=== PATIENT | female | born 1990 | race Two or more races ===

== ENCOUNTER 2017-03-30 09:04 | Emergency (ER) | payer OTHER ==
[2017-03-30 09:24] VITALS: BP 121/79; PULSE 89; TEMP 98.3; BMI 28.1
--- NOTE | 2017-03-30 09:37 | PDOC ---
History of Present Illness - General Chief Complaint: Pain, Acute Stated Complaint: ABD PAIN Time Seen by Provider: 03/30/17 09:35 History Source: Patient Exam Limitations: No Limitations - History of Present Illness Travel History: No Initial Comments: 03/30/17 13:04 My Chief Complaint: lower abdominal pain, nausea, vomiting History of present illness: Patient is a 26-year-old female with no significant medical history today complaining of lower abdominal cramping alternatingly sharp pain every few days for the last 2 years getting worse in the last 2-3 months. Patient reports also that she's had nausea and vomiting for 2-3 months with multiple episodes of vomiting today and prior to that 3 days ago. Patient denies any diarrhea. Patient denies any dysuria however patient needs frequently and has urgency with no hematuria. Patient last saw her GLASS BLOWING LATHE OPERATOR [address] Chyna García. Patient is a 4 para 3 and miscarriage 1 all vaginal deliveries. Patient reports that she has had this lower abdominal cramping and sharp pain since the of her son 05/26/2015. Patient reports that she was getting Depo injection was 2015. Patient's last menstrual cycle was 03/30/2017 and lasted for 8 days. Patient denies any belching or epigastric tenderness or burning sensation. Denies any vaginal discharge. Patient reports that at times when having sex she has some dyspareunia. Patient reports being sexually active with the same partner for years. Social HX: drinks on socially on occasion, denies any drug use PCP> Dr. Melissa Montez 03/30/17 13:08 03/30/17 13:09 03/30/17 19:57 Timing/Duration: reports: changing over time (for last 2 years getting worse in last 2-3 months) Quality: reports: cramping, stabbing (alternates between cramping and stabbing sensation every 2 days) Abdominal Pain Onset Location: reports: suprapubic Pain Radiation: reports: no radiation Activities at Onset: reports: none Aggravating Factors: improves with: None Alleviating Factors: improves with: None Past History - Past Medical History Allergies/Adverse Reactions: Allergies Allergy/AdvReac Type Severity Reaction Status Date / Time No Known Allergies Allergy Verified 03/30/17 09:20 Home Medications: Ambulatory Orders Ciprofloxacin HCl [Cipro] 500 mg PO BID #14 tablet 03/30/17 Asthma: No Cancer: No Cardiac Disorders: No Diabetes: No HTN: No Seizures: No Thyroid Disease: No Other medical history: gallstones - Surgical History Cholecystectomy: Yes (GALLSTONES REMOVED) - Reproductive History (#): 4 Para: 3 Cervical CA: No Dysfunctional Uterine Bleeding: No Ectopic : No Endometrial CA: No Polycystic Ovaries: No Therapeutic (s) & number: ("baby in utero at 15 weeks") Tubal Ligation: No - Immunization History Immunization Up to Date: Yes - Psycho/Social/Smoking Cessation Hx Anxiety: No Suicidal Ideation: No Smoking History: Former smoker Have you smoked in the past 12 months: Yes Number of Cigarettes Smoked Daily: 0 If you are a former smoker, when did you quit?: 1 month ago Information on smoking cessation initiated: No Hx Alcohol Use: Yes Drug/Substance Use Hx: No Substance Use Type: None Hx Substance Use Treatment: No Review of Systems - Review of Systems Able to Perform ROS?: Yes Constitutional: No: Symptoms Reported HEENTM: No: Symptoms Reported Respiratory: No: Symptoms reported Cardiac (ROS): No: Symptoms Reported ABD/GI: Yes: Nausea (nausea and vomiting for 2-3 months, vomited today multiple times, ), Vomiting : Yes: Dysuria, Frequency, Urgency, Other (dyspareunia intermittently ). No: Discharge, Flank Pain, Hematuria, Pain, Lesions Musculoskeletal: No: Symptoms Reported Integumentary: No: Symptoms Reported Neurological: No: Symptoms reported *Physical Exam - Vital Signs Last Vital Signs Temp Pulse Resp BP Pulse Ox 98.3 F 89 18 121/79 98 03/30/17 09:21 03/30/17 09:21 03/30/17 09:21 03/30/17 09:21 03/30/17 09:21 - Physical Exam General Appearance: Yes: Appropriately Dressed Respiratory/Chest: positive: Lungs Clear, Normal Breath Sounds. negative: Chest Tender, Respiratory Distress Cardiovascular: positive: Regular Rhythm, Regular Rate, S1, S2 Gastrointestinal/Abdominal: positive: Normal Bowel Sounds, Tender (suprapubic area b/l ), Soft, Organomegaly. negative: Distended, Guarding, Rebound, Tenderness, Hepatomegaly, Spleenomegaly Musculoskeletal: negative: CVA Tenderness, CVA Tenderness (R), CVA Tenderness (L ) Integumentary: positive: Normal Color Neurologic: positive: Fully Oriented, Alert, Normal Response, Responsive ED Treatment Course - LABORATORY CBC & Chemistry Diagram: 03/30/17 11:55 03/30/17 11:55 Medical Decision Making - Medical Decision Making 03/30/17 12:50 Patient is a 26-year-old female with h/o cholecytectomy o significant medical history today complaining of lower abdominal cramping alternatingly sharp pain every few days for the last 2 years getting worse in the last 2-3 months. Patient reports also that she's had nausea and vomiting for 2-3 months with multiple episodes of vomiting today and prior to that 3 days ago. Patient denies any diarrhea. Patient denies any dysuria however patient needs frequently and has urgency with no hematuria. Patient last saw her GLASS BLOWING LATHE OPERATOR [address] Chyna García. Patient is a 4 para 3 and miscarriage 1 all vaginal deliveries. Patient reports that she has had this lower abdominal cramping and sharp pain since the of her son 05/26/2015. Patient reports that she was getting Dep injection was 2015. Patient's last menstrual cycle was 03/30/2017 and lasted for 8 days. Patient denies any belching or epigastric tenderness or burning sensation. Denies any vaginal discharge. Patient reports that at times when having sex she has some dyspareunia. Patient reports being sexually active with the same partner for years. b/l ovarian cyst pyelonephritis lower abdominal pain with nausea and vomiting R/O UTI R/O intraabdominal abnormalities PLAN: CBC with diff cmp lipase u/a urine C & S chlamydia/GC amplification IV insert NS 0.9 % 1000 liters toradol [address] abdomen/pelvis with IV/PO refill left ovarian focal low attend urination density likely representing a cyst measuring 2.5 cm and there is a larger right adnexal cyst measuring 3.9 cm there is inadequate distention of the colon limiting evaluation the wall in particular there is inadequate distention of the sigmoid colon cannot rule out wall thickening correlate clinically per Dr. Calixto. cipro 500 mg bid for 7 days follow up with tempering kiln tender as soon as possible follow up with your primary care provider Laboratory Tests 03/30/17 03/30/17 03/30/17 09:35 09:48 11:55 WBC 9.2 RBC 4.27 Hgb 13.2 Hct 38.8 MCV 91.0 MCHC 33.9 RDW 13.3 Plt Count 338 D MPV 7.0 L Neutrophils % 59.5 Lymphocytes % 22.5 Monocytes % 7.1 Eosinophils % 10.1 H D Basophils % 0.8 Sodium Potassium Chloride Carbon Dioxide Anion Gap BUN Creatinine Creat Clearance w eGFR Random Glucose Total Bilirubin AST ALT Alkaline Phosphatase Total Protein Albumin Lipase Urine Color Yellow Urine Appearance Clear Urine pH 5.0 D Ur Specific [place] Pending Urine Protein Negative Urine Glucose (UA) Negative Urine Ketones Negative Urine Blood 1+ H Urine Nitrite Negative Urine Bilirubin Negative Urine Urobilinogen Negative Ur Leukocyte Esterase Trace H D Urine RBC 1 Urine WBC 4 Ur Epithelial Cells Rare Urine Mucus Few Urine HCG, Qual Negative 03/30/17 11:55 WBC RBC Hgb Hct MCV MCHC RDW Plt Count MPV Neutrophils % Lymphocytes % Monocytes % Eosinophils % Basophils % Sodium 142 Potassium 4.6 Chloride 108 H Carbon Dioxide 26 Anion Gap 8 BUN 9 D Creatinine 0.8 Creat Clearance w eGFR > 60 Random Glucose 83 Total Bilirubin 0.4 D AST 22 D ALT 34 D Alkaline Phosphatase 75 D Total Protein 7.8 Albumin 4.0 Lipase 107 Urine Color Urine Appearance Urine pH Ur Specific [place] Urine Protein Urine Glucose (UA) Urine Ketones Urine Blood Urine Nitrite Urine Bilirubin Urine Urobilinogen Ur Leukocyte Esterase Urine RBC Urine WBC Ur Epithelial Cells Urine Mucus Urine HCG, Qual 03/30/17 13:09 03/30/17 13:09 03/30/17 13:11 03/30/17 15:57 03/30/17 19:58 03/30/17 19:59 *DC/Admit/Observation/Transfer Diagnosis at time of Disposition: Ovarian cyst, Pyelonephritis - Discharge Dispostion Disposition: HOME Condition at time of disposition: Stable - Prescriptions Prescriptions: Ciprofloxacin HCl [Cipro] 500 mg PO BID #14 tablet - Referrals Referrals: Ginette Cervantes MD [Primary Care Provider] - - Patient Instructions Additional Instructions: Follow Up with your revenue accountant as soon as possible return to emergency room if symptoms return to emergency room if symptoms worsen or new symptoms develop Drink a lot of Fluids especially cranberry juice Take ibuprofen as needed as directed by qa automation engineer for pain we will call you if pending labs will need follow-up treatment Patient voiced understanding of discharge instructions and all questions were answered - Post Discharge Activity Work/School Note: Back to Work
[2017-03-30 10:03] LABS: URINE APPEARANCE CLEAR; URINE BILIRUBIN NEGATIVE (NEGATIVE); URINE COLOR YELLOW; URINE GLUCOSE (UA) NEGATIVE (NEGATIVE); URINE KETONE NEGATIVE (NEGATIVE); URINE NITRITE NEGATIVE (NEGATIVE); URINE PROTEIN NEGATIVE (NEGATIVE); URINE UROBILINOGEN NEGATIVE E.U./dl (0.2-1.0)
[2017-03-30] MEDS ORDERED: ONDANSETRON *ODT* 4 MG TABLET SL ONE (10:05)
[2017-03-30] MEDS ORDERED: ONDANSETRON *ODT* 4 MG TABLET ONE (10:12)
[2017-03-30] MEDS ORDERED: KETOROLAC TROMETHAMINE 60 MG/2 ML VIAL IM ONE (10:57)
[2017-03-30] MEDS ORDERED: SODIUM CHLORIDE 1,000 ML IV STA (10:57)
[2017-03-30] MEDS ORDERED: KETOROLAC TROMETHAMINE 30 MG/1 ML VIAL ONE (11:05)
[2017-03-30 12:06] LABS: BASOPHIL 0.8 % (0-2.0); EOSINOPHIL 10.1 % (0-4.5); MCH 30.9 pg (25.7-33.7); MCHC 33.9 g/dl (32.0-36.0); NEUTROPHILS 59.5 % (42.8-82.8); PLATELET COUNT 338 K/MM3 (134-434); RDW 13.3 % (11.6-15.6); WHITE BLOOD COUNT 9.2 K/mm3 (4.0-10.0)
[2017-03-30 12:19] LABS: URINE BLOOD 1+ (NEGATIVE); URINE LEUK ESTERASE TRACE (NEGATIVE)
[2017-03-30 12:23] LABS: URINE MUCUS FEW; URINE RBC 1 /hpf (0-3); URINE WBC 4 /hpf (3-5)
[2017-03-30 12:30] LABS: ANION GAP 8 (8-16); CO2 26 mmol/L (21-32); CREATININE 0.8 mg/dL (0.55-1.02); GLUCOSE,RANDOM 83 mg/dL (74-106); SGOT/AST 22 U/L (15-37); SGPT/ALT 34 U/L (12-78)
[2017-03-30 12:31] LABS: ALK PHOS 75 U/L (45-117); BILIRUBIN,TOTAL 0.4 mg/dL (0.2-1.0); TOT PROT 7.8 g/dl (6.4-8.2)
== END 2017-03-30 16:09 | disposition home or self-care (01) ==
LOC: JERFT 09:04
PROC: 3E0337Z Introduction of Electrolytic and Water Balance Substance into Peripheral Vein, Percutaneous Approach (ICD-10-PCS; principal; 2017-03-30)
PROC: 3E0233Z Introduction of Anti-inflammatory into Muscle, Percutaneous Approach (ICD-10-PCS; 2017-03-30)
DX: N10 Acute pyelonephritis (principal); N83.292 Other ovarian cyst, left side; N83.291 Other ovarian cyst, right side
CPT/HCPCS: 36415; 74177-TC; 80053; 81003; 81015; 83690; 84703; 85025; 87086; 87491; 87591; 99281-25; Q9967

== ENCOUNTER 2018-08-28 18:02 | Emergency (ER) | payer OTHER ==
[2018-08-28 19:21] VITALS: BP 119/66; PULSE 88; TEMP 99.1; BMI 27.4
[2018-08-28] MEDS ORDERED: DEXAMETHASONE LIQUID 0.5 MG/5 ML 240 ML BULK BOTTLE PO ONE (20:50)
[2018-08-28] MEDS ORDERED: DEXAMETHASONE SOD PHOSPHATE 10 MG/1 ML VIAL ONE (20:53)
--- NOTE | 2018-08-28 20:53 | PDOC ---
History of Present Illness - General Chief Complaint: Sore Throat Stated Complaint: SORE THROAT, EARACHE Time Seen by Provider: 08/28/18 20:45 - History of Present Illness Initial Comments: 28-year-old healthy female without comorbidities presents for evaluation of sore throat and subjective fever at home 4 days. 08/28/18 20:51 Past History - Past Medical History Allergies/Adverse Reactions: Allergies Allergy/AdvReac Type Severity Reaction Status Date / Time No Known Allergies Allergy Verified 08/28/18 19:18 Home Medications: Ambulatory Orders Amoxicillin - [Amoxicillin 875mg Tablet -] 875 mg PO BID #20 tablet 08/28/18 Asthma: No Cancer: No Cardiac Disorders: No COPD: No Diabetes: No HTN: No Seizures: No Thyroid Disease: No - Surgical History Cholecystectomy: Yes (GALLSTONES REMOVED) - Reproductive History (#): 4 Para: 3 Cervical CA: No Dysfunctional Uterine Bleeding: No Ectopic : No Endometrial CA: No Polycystic Ovaries: No Therapeutic (s) & number: ("baby in utero at 15 weeks") Tubal Ligation: No - Immunization History Immunization Up to Date: Yes - Suicide/Smoking/Psychosocial Hx Smoking History: Never smoked Have you smoked in the past 12 months: Yes Number of Cigarettes Smoked Daily: 0 If you are a former smoker, when did you quit?: 1 month ago Hx Alcohol Use: No Drug/Substance Use Hx: No Substance Use Type: None Hx Substance Use Treatment: No Review of Systems - Review of Systems Constitutional: Yes: Fever HEENTM: Yes: Throat Pain All Other Systems: Reviewed and Negative *Physical Exam - Vital Signs Last Vital Signs Temp Pulse Resp BP Pulse Ox 99.1 F 88 16 119/66 99 08/28/18 19:19 08/28/18 19:19 08/28/18 19:19 08/28/18 19:19 08/28/18 19:19 - Physical Exam Comments: 08/28/18 20:51 HEAD: NC/AT EYES: Conjuntiva clear Ears: Canals and TM's normal NOSE: No d/c THROAT: Moist mucous membrances, oral pharanx erythemic with exudate, uvula midline NECK: Supple without adenopathy CARDIAC: S1 S2 LUNGS: CTA Full and Equal breath sounds ABDOMEN: Soft NT ND MS: Full ROM in all joints without edema NEUROLOGIC: No gross sensory or motor deficits, NVID SKIN: Normal color and temperature no lesions or rashes *DC/Admit/Observation/Transfer Diagnosis at time of Disposition: Strep pharyngitis - Discharge Dispostion Disposition: HOME Condition at time of disposition: Stable Decision to Admit order: No - Prescriptions Prescriptions: Amoxicillin - [Amoxicillin 875mg Tablet -] 875 mg PO BID #20 tablet - Referrals Referrals: Devin Cervantes [Primary Care Provider] - - Patient Instructions Printed Discharge Instructions: Strep Throat, DI for Strep Throat Additional Instructions: Did not take any [id number] cold preparation such as TheraFlu or NyQuil. Do not take any anti-inflammatory such as Advil Motrin or Aleve. If he anything more for pain you can take Tylenol extra strength as directed. Return to the emergency room should symptoms worsen or go unresolved. He was given a dose of steroids in the emergency room tonight which will help with her throat pain about a day. Take all the antibiotics as directed you must finish the entire bottle. Follow-up with your primary care physician in one to 2 days for further evaluation and treatment options. - Post Discharge Activity
== END 2018-08-28 20:57 | disposition home or self-care (01) ==
LOC: JERFT 18:02 → JER 18:02 → JERFT 20:57
DX: J02.0 Streptococcal pharyngitis (principal); B95.5 Unspecified streptococcus as the cause of diseases classified elsewhere
CPT/HCPCS: 99281-25

== ENCOUNTER 2019-03-04 13:57 | Emergency (ER) | payer OTHER ==
--- NOTE | 2019-03-04 14:07 | PDOC ---
Rapid Medical Evaluation Time Seen by Provider: 03/04/19 14:05 Medical Evaluation: Allergies Allergy/AdvReac Type Severity Reaction Status Date / Time No Known Allergies Allergy Verified 08/28/18 19:18 03/04/19 14:05 I have performed a brief in-person evaluation of this patient. The patient presents with a chief complaint of:Diarrhea w/ n/v x 3 days, w/ lower abd pain x 1 week. No f/c. No sick contacts, recent travel, unusual food or abx use Pertinent physical exam findings:Well nina and stable, abd exam deferred to ED provider I have ordered the following:labs/given urine cup in triage The patient will proceed to the ED for further evaluation. Discharge Disposition - Diagnosis Abdominal pain Qualifiers: Abdominal location: unspecified location Qualified Code(s): R10.9 - Unspecified abdominal pain - Referrals - Patient Instructions - Post Discharge Activity
[2019-03-04 14:13] VITALS: BMI 27.1
[2019-03-04] MEDS ORDERED: ACETAMINOPHEN 325 MG TABLET (FP) PO ONE (15:34)
[2019-03-04 15:41] LABS: BASO % 0.6 % (0-2.0); EOS % 1.8 % (0-4.5); HEMATOCRIT 35.6 % (32.4-45.2); LYMPH % 44.6 % (8-40); MCH 31.2 pg (25.7-33.7); MCHC 33.8 g/dl (32.0-36.0); MEAN CELL VOLUME 92.3 fl (80-96); MEAN PLT VOLUME 7.1 fl (7.5-11.1); MONO % 14.7 % (3.8-10.2); NEUT % 38.3 % (42.8-82.8); PLATELET COUNT 323 K/MM3 (134-434); RBC 3.85 M/mm3 (3.60-5.2); RDW 13.4 % (11.6-15.6); WHITE BLOOD COUNT 5.5 K/mm3 (4.0-10.0)
--- NOTE | 2019-03-04 15:43 | PDOC ---
History of Present Illness - General Chief Complaint: Pain, Acute Stated Complaint: ABD. PAIN Time Seen by Provider: 03/04/19 14:05 History Source: Patient Exam Limitations: No Limitations Past History - Travel Traveled outside of the country in the last 30 days: No Close contact w/someone who was outside of country & ill: No - Past Medical History Allergies/Adverse Reactions: Allergies Allergy/AdvReac Type Severity Reaction Status Date / Time No Known Allergies Allergy Verified 08/28/18 19:18 Home Medications: Ambulatory Orders Acetaminophen [Tylenol .Regular Strength -] 650 mg PO Q3H PRN #0 tablet Ibuprofen [Motrin -] 600 mg PO Q4H PRN #0 tablet 05/28/15 Vitamins (Sjr) - 1 tab PO DAILY #30 tablet 05/28/15 Albuterol Sulfate Inhaler - [Ventolin HFA Inhaler -] 1 - 2 inh PO Q4H #1 inhaler 05/21/18 Amoxicillin - [Amoxicillin 500mg Capsule -] 500 mg PO BID #14 capsule 05/21/18 Ibuprofen 800 mg PO TID #30 tablet 05/21/18 Ketotifen Fumarate [Zaditor] 2 drop OU TID #100 drops 05/21/18 Amoxicillin - [Amoxicillin 875mg Tablet -] 875 mg PO BID #20 tablet 08/28/18 Asthma: No Cancer: No Cardiac Disorders: No COPD: No Diabetes: No HTN: No Seizures: No Thyroid Disease: No - Surgical History Cholecystectomy: Yes - Reproductive History (#): 4 Para: 3 Cervical CA: No Dysfunctional Uterine Bleeding: No Ectopic : No Endometrial CA: No Polycystic Ovaries: No Therapeutic (s) & number: ("baby in utero at 15 weeks") Tubal Ligation: No - Immunization History Immunization Up to Date: Yes - Suicide/Smoking/Psychosocial Hx Smoking History: Former smoker Have you smoked in the past 12 months: Yes Number of Cigarettes Smoked Daily: 0 If you are a former smoker, when did you quit?: 3 Weeks Information on smoking cessation initiated: No Hx Alcohol Use: Yes (Social) Drug/Substance Use Hx: No Substance Use Type: None Hx Substance Use Treatment: No Review of Systems - Review of Systems Able to Perform ROS?: Yes Is the patient limited Turkish proficient: No Constitutional: Yes: Weight Stable. No: Chills, Diaphoresis, Fever, Loss of Appetite, Malaise, Weakness HEENTM: No: Blurred Vision, Double Vision, Nose Congestion, Throat Pain, Throat Swelling, Difficulty Swallowing Respiratory: No: Cough, Orthopnea, Shortness of Breath Cardiac (ROS): No: Chest Pain, Edema, Irregular Heart Rate, Lightheadedness, Palpitations, Syncope, Chest Tightness ABD/GI: Yes: See HPI, Diarrhea, Nausea, Vomiting, Abdominal cramping (cramping in lower abdomen and lower back). No: Abdominal Distended, Blood Streaked Bowels, Constipated, Poor Appetite, Poor Fluid Intake : No: Burning, Dysuria, Discharge, Frequency, Flank Pain, Hematuria, Pain, Urgency Musculoskeletal: Yes: Back Pain (lower back cramping). No: Joint Pain, Muscle Pain, Muscle Weakness Integumentary: No: Rash Neurological: No: Headache, Numbness, Paresthesia, Weakness, Unsteady Gait, Dizziness Psychiatric: No: Sleep Pattern Change, Change in Appetite Endocrine: No: Increased Urine, Change in Weight Hematologic/Lymphatic: No: Anemia, Blood Clots, Easy Bleeding, Easy Bruising All Other Systems: Reviewed and Negative *Physical Exam - Vital Signs Last Vital Signs Temp Pulse Resp BP Pulse Ox 98.4 F 103 H 20 121/75 99 03/04/19 14:06 03/04/19 14:06 03/04/19 14:06 03/04/19 14:06 03/04/19 14:06 - Physical Exam Comments: Vitals stable, pt afebrile. Pt in NAD, normal body habitus. Pt alert and oriented x3. forensic sergeant generally intact, muscular strength and sensation intact. No midline spinal tenderness, step-offs, or crepitus. Head normocephalic, atraumatic. Eyes PERRLA, EOMI. Oropharynx without erythema or exudates, no LAD b/l. No nasal congestion, hearing intact. Clear heart sounds, S1/S2, no JVD, b/l pedal edema, or heart murmur. Clear lung sounds, no respiratory distress, wheezes, crackles, or accessory muscle use. No abdominal or CVA tenderness to palpation, no rebound, no guarding. Abdomen soft, non-distended, and with normoactive bowel sounds. Pelvic: Skin without jaundice or rash. 03/04/19 16:41 ED Treatment Course - LABORATORY CBC & Chemistry Diagram: 03/04/19 15:25 03/04/19 15:25 Medical Decision Making - Medical Decision Making Pt was seen at bedside, also will be seen by attending Dr. Russo. Pt presenting with Considering [vs vs] Ordered work-up including CBC, CMP, type and screen, UA, urine culture, GC/ trichomonas/chlamydia, and urine . Pending test to determine transvaginal US (/bleeding eval vs ovarian cysts). Provided 650 mg PO tylenol for improvement of lower abdominal discomfort. Will continue to reassess pt and monitor for symptomatic improvement. 03/04/19 15:35 Pt was taken for transvaginal US (for <14 weeks), pending report. 03/04/19 17:39 Transvaginal US: Impression: Possible small intrauterine gestational sac without an associated yolk sac or embryonic pole at this time (versus representing a pseudogestational sac associated with ectopic ). 1.6 cm right ovarian cyst/follicle. 03/04/19 18:07 Pts beta-level was appropriate for gestational age. Cervical os was closed, no active bleeding at this time. No need for rhogam based on blood type. US showed IUP with no evidence at this time of an ectopic . Pt can be discharged to home with follow-up. Pt advised to follow-up with PCP in 1-2 days and has been referred to STOCK RECEIVER (Dr. Michaels). Strict return precautions provided with pt understanding. Pt can follow with OB or return to ER in 48 hours for repeat beta. 03/04/19 18:07 *DC/Admit/Observation/Transfer Diagnosis at time of Disposition: in first trimester with history of Abdominal pain Qualifiers: Abdominal location: unspecified location Qualified Code(s): R10.9 - Unspecified abdominal pain - Discharge Dispostion Disposition: HOME Condition at time of disposition: Good Decision to Admit order: No - Referrals Referrals: Diomedes Michaels MD [Staff Physician] - - Patient Instructions Printed Discharge Instructions: DI for Threatened , DI for Vaginal Bleeding During Additional Instructions: You were seen in the ER today for vaginal spotting, nausea, and vomiting. The results of your labs and imaging today showed that you have an early . Please follow-up with your primary care doctor and STOCK RECEIVER within 1-2 days to discuss your visit and make sure your symptoms have improved. Please return to the ER if you have any worsening pain, development of fevers or chills, loss of consciousness, heavy vaginal bleeding that soaks through 1-2 heavy pads per hour , passage of heavy clots or tissue, inability to tolerate food or fluids, or any other concerns. - Post Discharge Activity
[2019-03-04] MEDS ORDERED: ACETAMINOPHEN 325 MG TABLET (FP) ONE ×2 (16:03→16:05)
[2019-03-04 16:08] LABS: HCG,QUALITATIVE URINE Positive; PH,URINE 5.5 (5.0-8.0); URINE APPEARANCE CLEAR; URINE BILIRUBIN NEGATIVE (NEGATIVE); URINE COLOR DK YELLOW; URINE GLUCOSE (UA) NEGATIVE (NEGATIVE); URINE KETONE TRACE (NEGATIVE); URINE LEUK ESTERASE NEGATIVE (NEGATIVE); URINE NITRITE NEGATIVE (NEGATIVE); URINE PROTEIN TRACE (NEGATIVE); URINE UROBILINOGEN 0.2 mg/dL (0.2-1.0)
[2019-03-04 16:15] LABS: ALBUMIN 3.6 g/dl (3.4-5.0); ALK PHOS 54 U/L (45-117); ANION GAP 8 MMOL/L (8-16); BILIRUBIN,TOTAL 0.2 mg/dL (0.2-1); BLOOD UREA NITROGEN 11 mg/dL (7-18); CALCIUM 9.2 mg/dL (8.5-10.1); CHLORIDE 107 mmol/L (98-107); CO2 23 mmol/L (21-32); CREATININE 0.8 mg/dL (0.55-1.3); GLUCOSE,RANDOM 78 mg/dL (74-106); POTASSIUM 3.8 mmol/L (3.5-5.1); SGOT/AST 23 U/L (15-37); SGPT/ALT 25 U/L (13-61); SODIUM 139 mmol/L (136-145); TOT PROT 7.6 g/dl (6.4-8.2)
--- NOTE | 2019-03-04 18:02 | PDOC ---
Documentation entered by Arabella Parry SCRIBE, acting as scribe for Sushma Kinney MD. Sushma Kinney MD: This documentation has been prepared by the [place] Sammi, SCRIBE, under my direction and personally reviewed by me in its entirety. I confirm that the documentation accurately reflects all work, treatment, procedures, and medical decision making performed by me. Attending Attestation - Resident Resident Name: JyotiBisi - ED Attending Attestation I have performed the following: I have examined & evaluated the patient, The case was reviewed & discussed with the resident, I agree w/resident's findings & plan, Exceptions are as noted - HPI HPI: 03/04/19 16:14 The patient is a 28 year old female, , with a PMH of bilateral ovarian cysts , who presents to the emergency department for evaluation of 1 week of diffuse lower abdominal pain, radiation to back and legs. Patient notes nausea, vomiting , and some vaginal spotting, no clots or tissue. The patient denies chest pain, shortness of breath, headache and dizziness. Denies fever, chills, diarrhea and constipation. Denies dysuria, frequency, urgency and hematuria. Allergies: NKA - Physicial Exam PE: 03/04/19 17:09 agree with resident exam - Medical Decision Making 03/04/19 17:10 28yo F LMP 02/03 presents to the ED with 1 week of lower abdominal pain and cramping. Also had vaginal spotting today. UPT+ Vitals with mild tachycardia to 103 Abd exam with no abd ttp, no RLQ or LLQ ttp Pelvic exam with no active bleeding/discharge, os closed, +mild b/l adnexal ttp Plan for TVUS to evaluate for IUP vs ectopic vs ovarian cyst vs spontaneous Unlikely appy as no RLQ ttp, and no leukocytosis UA neg for infection BHCG and type and screen added to w/u and pending Case signed out to overnight attending for f/u pending diagnostics and dispo
[2019-03-04 19:14] VITALS: BP 125/70; PULSE 95; TEMP 98.1
== END 2019-03-04 18:20 | disposition home or self-care (01) ==
LOC: JER 13:57
DX: O26.891 Other specified pregnancy related conditions, first trimester (principal); O09.291 Supervision of pregnancy with other poor reproductive or obstetric history, first trimester; O34.81 Maternal care for other abnormalities of pelvic organs, first trimester; N83.291 Other ovarian cyst, right side; Z3A.01 Less than 8 weeks gestation of pregnancy
CPT/HCPCS: 36415; 76801-TC; 80053; 81003; 84702; 84703; 85025; 86850; 86900; 86901; 87086; 87491; 87591; 87661; 99281-25

== ENCOUNTER 2019-04-22 20:38 | Emergency (ER) | payer OTHER ==
--- NOTE | 2019-04-22 21:07 | PDOC ---
Rapid Medical Evaluation Time Seen by Provider: 04/22/19 21:05 Medical Evaluation: Allergies Allergy/AdvReac Type Severity Reaction Status Date / Time No Known Allergies Allergy Verified 08/28/18 19:18 04/22/19 21:05 This patient had brief in-person evaluation in triage cc: vaginal bleeding today , 12 weeks PE: +lower abominal tenderness unlabored breathing orders labs this patient will proceed to ed for further evaluation Discharge Disposition - Diagnosis Vaginal bleeding during - Referrals - Patient Instructions - Post Discharge Activity
[2019-04-22 21:11] VITALS: BP 118/56; PULSE 75; TEMP 98.3; BMI 28.7
[2019-04-22] MEDS ORDERED: ACETAMINOPHEN 500 MG TABLET (FP) PO ONE (22:29)
--- NOTE | 2019-04-22 22:35 | PDOC ---
History of Present Illness - General Chief Complaint: Vaginal Bleeding Stated Complaint: 12WKS < VAGINAL BLEEDING Time Seen by Provider: 04/22/19 21:05 - History of Present Illness Initial Comments: 04/22/19 22:30 The patient is a 29 year old female who presents to our ED this evening c/ o acute onset of vaginal bleeding. Bleeding started around 5 p.m. this evening and is associated with lower abdominal cramping. No fevers/chills. No care/ultrasound during this however states she has an appointment scheduled with an mail reader (cannot recall the name) later this week. NKDA Surgical: none reported Social: occasional smoker, denies other toxic habits As per EMR patient is O+ Positive Blood Type. Past History - Past Medical History Allergies/Adverse Reactions: Allergies Allergy/AdvReac Type Severity Reaction Status Date / Time No Known Allergies Allergy Verified 04/22/19 21:10 Home Medications: Ambulatory Orders Acetaminophen [Tylenol .Regular Strength -] 650 mg PO Q3H PRN #0 tablet Ibuprofen [Motrin -] 600 mg PO Q4H PRN #0 tablet 05/28/15 Vitamins (Sjr) - 1 tab PO DAILY #30 tablet 05/28/15 Albuterol Sulfate Inhaler - [Ventolin HFA Inhaler -] 1 - 2 inh PO Q4H #1 inhaler 05/21/18 Amoxicillin - [Amoxicillin 500mg Capsule -] 500 mg PO BID #14 capsule 05/21/18 Ibuprofen 800 mg PO TID #30 tablet 05/21/18 Ketotifen Fumarate [Zaditor] 2 drop OU TID #100 drops 05/21/18 Amoxicillin - [Amoxicillin 875mg Tablet -] 875 mg PO BID #20 tablet 08/28/18 Sulfamethoxazole/Trimethoprim [Bactrim Ds -] 1 tab PO BID #14 tablet 04/22/19 Asthma: No Cancer: No Cardiac Disorders: No COPD: No Diabetes: No HTN: No Seizures: No Thyroid Disease: No - Surgical History Cholecystectomy: Yes - Reproductive History (#): 4 Para: 3 Cervical CA: No Dysfunctional Uterine Bleeding: No Ectopic : No Endometrial CA: No Polycystic Ovaries: No Therapeutic (s) & number: ("baby in utero at 15 weeks") Tubal Ligation: No - Immunization History Immunization Up to Date: Yes - Suicide/Smoking/Psychosocial Hx Smoking History: Current some day smoker Have you smoked in the past 12 months: Yes Number of Cigarettes Smoked Daily: 3 If you are a former smoker, when did you quit?: 3 Weeks Information on smoking cessation initiated: No Hx Alcohol Use: No Drug/Substance Use Hx: No Substance Use Type: None Hx Substance Use Treatment: No Review of Systems - Review of Systems Constitutional: No: Chills, Fever Respiratory: No: Shortness of Breath Cardiac (ROS): No: Chest Pain, Lightheadedness ABD/GI: No: Constipated, Diarrhea, Nausea, Vomiting : Yes: Other (vaginal bleeding) *Physical Exam - Vital Signs Last Vital Signs Temp Pulse Resp BP Pulse Ox 98.3 F 75 17 118/56 L 100 04/22/19 21:08 04/22/19 21:08 04/22/19 21:08 04/22/19 21:08 04/22/19 21:08 - Physical Exam General Appearance: Yes: Nourished, Appropriately Dressed HEENT: positive: Normal Voice, Hearing Grossly Normal Neck: positive: Trachea midline, Supple Female Pelvic Exam: positive: other (Pelvic exam: dark red blood in vaginal vault, cervical os closed) Gastrointestinal/Abdominal: positive: Soft, Other (B/L LQ TTP) Extremity: positive: Normal Capillary Refill, Normal Inspection Integumentary: positive: Normal Color, Dry, Warm Neurologic: positive: scientific artist II-XII NML intact, Fully Oriented, Alert ED Treatment Course - LABORATORY CBC & Chemistry Diagram: 04/22/19 22:38 04/22/19 22:38 - RADIOLOGY Radiology Studies Ordered: Category Date Time Status TRANSVAGINAL US PREG [US] Stat Ultrasound 04/22/19 22:20 Ordered Medical Decision Making - Medical Decision Making 04/22/19 22:34 29 year old female at a self-reported 12 weeks gestation who presents with acute onset of vaginal bleeding and cramping. VS unremarkable. Frontal diagnosis: SAB, Threatened AB, Ectopic , Molar . PLAN: TVUS, Pelvic exam, CBC, CMP, UA As patient has documented O+ Positive blood type; patient does not require retype or Rhogam 04/22/19 22:44 Pelvic exam shows closed cervical os, dark red blood in vaginal vault Bedside U/S shows pole without FHR Labs, TVUS, UA pending 04/22/19 23:58 B-HCG 2685, w/c up to 5 weeks of TVUS confirms pole with no FHR UA: 3+ Blood, 1+ Leukocyte Esterase, 110 WBC - will treat with outpatient Bactrim Patient counseled on TVUS results and importance of follow-up within 48 hours for repeat TVUS/B-HCG. Clinical Impression: Spontaneous I discussed the physical exam findings, ancillary test results and final diagnoses with the patient. I answered all of the patient's questions. The patient was satisfied with the care received and felt comfortable with the discharge plan and treatment plan. The patient will return to the Emergency Department with any new, persistent or worsening symptoms. *DC/Admit/Observation/Transfer Diagnosis at time of Disposition: Vaginal bleeding during - Discharge Dispostion Disposition: HOME Condition at time of disposition: Good Decision to Admit order: No - Prescriptions Prescriptions: Sulfamethoxazole/Trimethoprim [Bactrim Ds -] 1 tab PO BID #14 tablet - Referrals Referrals: Ginette Cervantes MD [Primary Care Provider] - Mary Vera MD [Staff Physician] - Mikhail Richey MD [Staff Physician] - Sari Solorio DO [Staff Physician] - Nancy Duran MD [Staff Physician] - - Patient Instructions Additional Instructions: You must follow up with an lathe sander in the next 48 hours for repeat ultrasound and blood testing. We have provided a list of doctors or you can call your insurance company for a referral. If you are unable to make an appointment please return to the Emergency Department for repeat blood testing and ultrasound. We have sent a prescription to your pharmacy for a urinary tract infection. Please take the entire prescribed course. Return to the Emergency Department for any new/worsening/concerning symptoms. - Post Discharge Activity Forms/Work/School Notes: Back to Work
[2019-04-22 22:49] LABS: BASO % 0.4 % (0-2.0); EOS % 2.2 % (0-4.5); HEMATOCRIT 35.9 % (32.4-45.2); HEMOGLOBIN 12.1 GM/dL (10.7-15.3); LYMPH % 38.5 % (8-40); MCH 31.3 pg (25.7-33.7); MCHC 33.7 g/dl (32.0-36.0); MEAN PLT VOLUME 6.9 fl (7.5-11.1); MONO % 5.5 % (3.8-10.2); NEUT % 53.4 % (42.8-82.8); PLATELET COUNT 343 K/MM3 (134-434); RBC 3.87 M/mm3 (3.60-5.2); RDW 13.4 % (11.6-15.6)
[2019-04-22] MEDS ORDERED: ACETAMINOPHEN 325 MG TABLET (FP) ONE (23:02)
[2019-04-22 23:17] LABS: EPI CELLS 9.9 /HPF (0-5/HPF); HYALINE CASTS 8 /lpf (0-8); URINE APPEARANCE CLOUDY; URINE BACTERIA 110.8 /hpf (NEGATIVE); URINE BILIRUBIN NEGATIVE (NEGATIVE); URINE COLOR RED; URINE GLUCOSE (UA) NEGATIVE (NEGATIVE); URINE KETONE TRACE (NEGATIVE); URINE LEUK ESTERASE 1+ (NEGATIVE); URINE NITRITE NEGATIVE (NEGATIVE); URINE PROTEIN 1+ (NEGATIVE); URINE RBC 2 /hpf (0-4); URINE UROBILINOGEN 0.2 mg/dL (0.2-1.0); URINE WBC 10 /hpf (0-5)
[2019-04-22 23:27] LABS: ALBUMIN 4.2 g/dl (3.4-5.0); BILIRUBIN,TOTAL 0.3 mg/dL (0.2-1); BLOOD UREA NITROGEN 14.7 mg/dL (7-18); CALCIUM 9.1 mg/dL (8.5-10.1); CREATININE 0.8 mg/dL (0.55-1.3); POTASSIUM 3.8 mmol/L (3.5-5.1)
--- NOTE | 2019-04-23 00:35 | PDOC ---
Documentation entered by Araceli Kwan SCRIBE, acting as scribe for Chiquita Russo MD. Chiquita Russo MD: This documentation has been prepared by the [facility] park Adrianna, SCRIBE, under my direction and personally reviewed by me in its entirety. I confirm that the documentation accurately reflects all work, treatment, procedures, and medical decision making performed by me. Attending Attestation - Resident Resident Name: KaylenSita - ED Attending Attestation I have performed the following: I have examined & evaluated the patient, The case was reviewed & discussed with the resident, I agree w/resident's findings & plan, Exceptions are as noted - HPI HPI: The patient is a 29 year old female (), with a significant PMH of bilateral ovarian cysts, who presents to the emergency department today complaining of vaginal bleeding for approximately 5 hours. Patient notes she is currently at 12 weeks gestation while experiencing vaginal bleeding, but denies any care or ultrasound as of yet. She endorses associated lower abdominal cramping. Patient states she has an appointment with her OBGYN this week. The patient denies chest pain, shortness of breath, headache and dizziness. Denies fever, chills, nausea, vomit, diarrhea and constipation. Denies dysuria, frequency, urgency and hematuria. Allergies: NKA Past surgical history: Cholecystectomy Social history: Occasional smoker. Denies illicit drug use. PCP: Dr. Ginette Cervantes OBGYN: Cannot recall 04/22/19 22:47 - Physicial Exam PE: GENERAL: Well-appearing, well-nourished. No apparent distress. HEENT: Normocephalic, atraumatic. PERRL, EOM intact. NECK: Supple. CARDIOVASCULAR: Normal S1, S2. Regular rate and rhythm. PULMONARY: Clear to auscultation bilaterally. ABDOMEN: Soft, non-distended, non-tender. No guarding, no rebound. PELVIC: Agree with resident exam. EXTREMITIES: Normal ROM in all four extremities. No gross deformities. No edema. SKIN: Warm, dry. No rash NEUROLOGICAL: Awake, alert, and oriented x3.No focal neurological deficits. Normal gait, ambulatory. PSYCHOLOGICAL: Appropriate mood and affect. 04/22/19 22:50 - Medical Decision Making 04/22/19 22:27 imp: threatened AB bhcg,T & S, pelvic US 04/22/19 22:56 pt has an appt with warehousing technician tomorrow blood type o pos 04/22/19 23:56 pelvic US: no heart beat plan d/c home with warehousing technician follow up soon 04/23/19 00:06 EXAM#: TYPE/EXAM: RESULT: [id number] US/TRANSVAGINAL US PREG Evaluate for vaginal bleeding Impression: Deformity gestation sac extending to the lower uterine segment without dilatation of the cervical canal. Estimated gestational age based on the pole crown-rump length is 8 weeks 5 days. No heart activity could be detected. Findings are suggestive of in progress. Correlation with serial quantitative serum beta hCG and close follow-up ultrasound is needed for further evaluation. Reported By: Renate Reeves MD 04/22/19 23:51
== END 2019-04-23 00:16 | disposition home or self-care (01) ==
LOC: JER 20:38
PROC: BY49ZZZ Ultrasonography of First Trimester, Single Fetus (ICD-10-PCS; principal; 2019-04-22)
DX: O26.891 Other specified pregnancy related conditions, first trimester (principal); O03.4 Incomplete spontaneous abortion without complication; Z3A.08 8 weeks gestation of pregnancy; N39.0 Urinary tract infection, site not specified
CPT/HCPCS: 36415; 76801-TC; 76817-TC; 80053; 81003; 84702; 85025; 86850; 86900; 86901; 87086; 99282-25

== ENCOUNTER 2019-05-03 21:46 | Emergency (ER) | payer OTHER ==
--- NOTE | 2019-05-03 21:48 | PDOC ---
Rapid Medical Evaluation Medical Evaluation: Allergies Allergy/AdvReac Type Severity Reaction Status Date / Time No Known Allergies Allergy Verified 04/22/19 21:10 05/03/19 21:48 I have performed a brief in-person evaluation of this patient. The patient presents with a chief complaint of: Pertinent physical exam findings: I have ordered the following: The patient will proceed to the ED for further evaluation.
[2019-05-03 22:02] VITALS: BMI 28.3
--- NOTE | 2019-05-03 22:17 | PDOC ---
History of Present Illness - General Chief Complaint: Vaginal Bleeding Stated Complaint: ABD PAIN Time Seen by Provider: 05/03/19 22:08 - History of Present Illness Initial Comments: 05/03/19 22:17 29F last seen on 04/22 in out ED for threatened presents to the Ed for new onset vaginal bleeding for one week following her ED visit. She wasn't able to follow up with her OBGYN as she was given an appointment in mid-May. As she was waiting in our ED she went to the bathroom and felt a "pop", evacuated a bloody mixture of clots and tissue and felt immediate relief from the pain. She denies fever, chills, dysuria. Past History - Past Medical History Allergies/Adverse Reactions: Allergies Allergy/AdvReac Type Severity Reaction Status Date / Time No Known Allergies Allergy Verified 05/03/19 22:02 Home Medications: Ambulatory Orders Acetaminophen [Tylenol .Regular Strength -] 650 mg PO Q3H PRN #0 tablet Ibuprofen [Motrin -] 600 mg PO Q4H PRN #0 tablet 05/28/15 Vitamins (Sjr) - 1 tab PO DAILY #30 tablet 05/28/15 Albuterol Sulfate Inhaler - [Ventolin HFA Inhaler -] 1 - 2 inh PO Q4H #1 inhaler 05/21/18 Amoxicillin - [Amoxicillin 500mg Capsule -] 500 mg PO BID #14 capsule 05/21/18 Ibuprofen 800 mg PO TID #30 tablet 05/21/18 Ketotifen Fumarate [Zaditor] 2 drop OU TID #100 drops 05/21/18 Amoxicillin - [Amoxicillin 875mg Tablet -] 875 mg PO BID #20 tablet 08/28/18 Sulfamethoxazole/Trimethoprim [Bactrim Ds -] 1 tab PO BID #14 tablet 04/22/19 Asthma: No Cancer: No Cardiac Disorders: No COPD: No Diabetes: No HTN: No Seizures: No Thyroid Disease: No - Surgical History Cholecystectomy: Yes - Reproductive History (#): 4 Para: 3 Cervical CA: No Dysfunctional Uterine Bleeding: No Ectopic : No Endometrial CA: No Polycystic Ovaries: No Therapeutic (s) & number: ("baby in utero at 15 weeks") Tubal Ligation: No - Immunization History Immunization Up to Date: Yes - Suicide/Smoking/Psychosocial Hx Smoking History: Never smoked Have you smoked in the past 12 months: Yes Number of Cigarettes Smoked Daily: 0 If you are a former smoker, when did you quit?: 3 Weeks Hx Alcohol Use: Yes (Social) Drug/Substance Use Hx: No Substance Use Type: None Hx Substance Use Treatment: No Review of Systems - Review of Systems Able to Perform ROS?: Yes Is the patient limited Congolese proficient: No Constitutional: No: Symptoms Reported HEENTM: No: Symptoms Reported Respiratory: No: Symptoms reported Cardiac (ROS): No: Symptoms Reported ABD/GI: Yes: See HPI : No: Symptoms Reported Musculoskeletal: No: Symptoms Reported All Other Systems: Reviewed and Negative *Physical Exam - Vital Signs Last Vital Signs Temp Pulse Resp BP Pulse Ox 97.6 F 73 18 112/63 99 05/03/19 22:00 05/03/19 22:00 05/03/19 22:00 05/03/19 22:00 05/03/19 22:00 - Physical Exam General Appearance: Yes: Nourished, Appropriately Dressed. No: Apparent Distress HEENT: positive: EOMI, JAZMIN, Normal ENT Inspection Respiratory/Chest: positive: Lungs Clear, Normal Breath Sounds. negative: Chest Tender, Respiratory Distress Cardiovascular: positive: Regular Rhythm, Regular Rate, S1, S2 Female Pelvic Exam: positive: normal external exam, cervical os closed, vaginal bleeding. negative: CMT Gastrointestinal/Abdominal: positive: Normal Bowel Sounds, Tender (mild lower abdominal pain), Soft Musculoskeletal: positive: Normal Inspection. negative: CVA Tenderness Extremity: positive: Normal Capillary Refill, Normal Inspection, Normal Range of Motion Integumentary: positive: Normal Color, Dry, Warm Neurologic: positive: Fully Oriented, Alert, Normal Mood/Affect, Normal Response , Motor Strength 5/5 ED Treatment Course - LABORATORY CBC & Chemistry Diagram: 05/03/19 23:23 05/03/19 23:23 - RADIOLOGY Radiology Studies Ordered: Category Date Time Status TRANSVAGINAL ULTRASOUND US [US] Stat Ultrasound 05/03/19 22:15 Ordered Medical Decision Making - Medical Decision Making 05/04/19 00:12 Likely complete . Will make sure there are no retained products of conception and discharge with follow up. Labs and TVUS pending. 05/04/19 00:51 Beta HCG now 280 from 1999 last visit. OS closed, but patient still bleeding. Uterus is empty on TVUS but read shows that the endometrium is thickened, can't r/o some retained products on conception. Patient will follow up with OBGYN within 2 days, *DC/Admit/Observation/Transfer Diagnosis at time of Disposition: Miscarriage - Discharge Dispostion Disposition: HOME Decision to Admit order: No - Referrals Schedule a call back: UA/UC call back if positive Referrals: Ginette Cervantes MD [Primary Care Provider] - Mikhail Richey MD [Staff Physician] - - Patient Instructions Printed Discharge Instructions: Dealing With Miscarriage, DI for Miscarriage Additional Instructions: Follow up with your OBGYN doctor or with the one provided in this referral in two days. Come back to the emergency department for any new, worsening or concerning symptom. - Post Discharge Activity
[2019-05-03 23:34] LABS: BASO % 0.2 % (0-2.0); EOS % 0.7 % (0-4.5); HEMATOCRIT 35.3 % (32.4-45.2); HEMOGLOBIN 11.9 GM/dL (10.7-15.3); LYMPH % 14.6 % (8-40); MCH 31.2 pg (25.7-33.7); MCHC 33.6 g/dl (32.0-36.0); MEAN CELL VOLUME 92.9 fl (80-96); MEAN PLT VOLUME 6.9 fl (7.5-11.1); MONO % 5.1 % (3.8-10.2); NEUT % 79.4 % (42.8-82.8); PLATELET COUNT 326 K/MM3 (134-434); RDW 13.3 % (11.6-15.6); WHITE BLOOD COUNT 13.4 K/mm3 (4.0-10.0)
[2019-05-04 00:15] LABS: ALBUMIN 4.1 g/dl (3.4-5.0); BILIRUBIN,TOTAL 0.4 mg/dL (0.2-1); BLOOD UREA NITROGEN 9.1 mg/dL (7-18); CREATININE 0.9 mg/dL (0.55-1.3); POTASSIUM 4.2 mmol/L (3.5-5.1); TOT PROT 7.8 g/dl (6.4-8.2)
--- NOTE | 2019-05-04 00:31 | PDOC ---
Documentation entered by Ervin Maharaj SCRIBE, acting as scribe for Reshma Diaz MD. Reshma Diaz MD: This documentation has been prepared by the [facility] Daniel, SCRIBE, under my direction and personally reviewed by me in its entirety. I confirm that the documentation accurately reflects all work, treatment, procedures, and medical decision making performed by me. Attending Attestation - Resident Resident Name: Channing Vee - ED Attending Attestation I have performed the following: I have examined & evaluated the patient, The case was reviewed & discussed with the resident, I agree w/resident's findings & plan - HPI HPI: 05/03/19 23:03 The patient is a 29 year old female with no past medical history here today for evaluation of vaginal bleeding. The patient patient was seen in the ER on 04/22/19, had an US which showed spontaneous , and was told to follow up with OB. Patient reports that she has not followed up and is here today for 10 days of vaginal bleeding and suprapubic cramping. While in the ER the patient reports feeling a pop while going to the bathroom, noticed more vaginal bleeding, and felt better. Patient denies headache, lightheadedness. Denies fever, chills. Denies chest pain, shortness of breath. Denies nausea, vomiting, diarrhea. Allergies: NKA PCP: Ginette Cervantes - Physicial Exam PE: 05/03/19 23:03 GENERAL: Awake, alert, and fully oriented, in no acute distress HEAD: No signs of trauma EYES: PERRLA, EOMI, sclera anicteric, conjunctiva clear ENT: Auricles normal inspection, hearing grossly normal, nares patent, oropharynx clear without exudates. Moist mucosa NECK: Normal ROM, supple, no lymphadenopathy, JVD, or masses LUNGS: Breath sounds equal, clear to auscultation bilaterally. No wheezes, and no crackles HEART: Regular rate and rhythm, normal S1 and S2, no murmurs, rubs or gallops ABDOMEN: Soft, nontender, normoactive bowel sounds. No guarding, no rebound. No masses EXTREMITIES: Normal range of motion, no edema. No clubbing or cyanosis. No cords, erythema, or tenderness NEUROLOGICAL: Cranial nerves II through XII grossly intact. Normal speech, normal gait SKIN: Warm, Dry, normal turgor, no rashes or lesions noted. - Medical Decision Making 05/04/19 00:32 Pt has a closed cervical os; active bleeding. Hcg is 228; she will follow with TEMPLATE WORKER to make sure that her hcg quant is zero. 05/04/19 00:35 Patient Name: LIZ QUINTANA THIS IS A PRELIMINARY REPORT FROM [facility] DATE OF SERVICE: 2019-05-03 22:43:49 IMAGES: 25 EXAM: Transvaginal OB/pelvic ultrasound HISTORY: Rule out RPOC COMPARISON: None. FINDINGS: The endometrial stripe is heterogeneous and thickened. There is color flow noted to the endometrium. Findings are suspicious for possible RPOC. The left ovary is not seen. Right ovary measures 2.7 x 2.0 x 2.0 cm. There is intact blood flow demonstrated to the right ovary. Arterial and venous spectral waveforms demonstrated. There is no cul-de-sac effusion 05/04/19 00:35
[2019-05-04 01:06] VITALS: BP 112/66; PULSE 78; TEMP 97.8
[2019-05-04 01:21] LABS: EPI CELLS 2.4 /HPF (0-5/HPF); HYALINE CASTS 4 /lpf (0-8); URINE APPEARANCE CLEAR; URINE BACTERIA 39.8 /hpf (NEGATIVE); URINE BILIRUBIN NEGATIVE (NEGATIVE); URINE COLOR YELLOW; URINE GLUCOSE (UA) NEGATIVE (NEGATIVE); URINE KETONE 2+ (NEGATIVE); URINE LEUK ESTERASE NEGATIVE (NEGATIVE); URINE NITRITE NEGATIVE (NEGATIVE); URINE PROTEIN TRACE (NEGATIVE); URINE RBC 354 /hpf (0-4); URINE WBC 4 /hpf (0-5)
== END 2019-05-04 00:57 | disposition home or self-care (01) ==
LOC: JER 21:46
DX: O03.9 Complete or unspecified spontaneous abortion without complication (principal); Z87.891 Personal history of nicotine dependence
CPT/HCPCS: 36415; 76830-TC; 80053; 81003; 84702; 85025; 87086; 99283-25

== ENCOUNTER 2020-01-06 06:03 | Emergency (ER) | payer OTHER ==
[2020-01-06 06:57] VITALS: BMI 28.5
--- NOTE | 2020-01-06 07:16 | PDOC ---
History of Present Illness - General Chief Complaint: Vaginal Bleeding Stated Complaint: 11 WEEKS ,VAGINAL BLEEDING Time Seen by Provider: 01/06/20 07:13 - History of Present Illness Initial Comments: 01/06/20 07:14 Ms. 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 Patient reports she previously had a last year w/ bleeding that ultimately self-aborted. Patient also endorses a 1-2 day history of JASKARAN lower back pain. Describes bleeding as less than a liner's worth. Has had N/V w/ however not at this current time. Denies other symptoms at this time. The patient denies chest pain, shortness of breath, headache and dizziness. Denies fever, chills, diarrhea and constipation. Denies dysuria, frequency, urgency and hematuria. Past History - Past Medical History Allergies/Adverse Reactions: Allergies Allergy/AdvReac Type Severity Reaction Status Date / Time No Known Allergies Allergy Verified 05/03/19 22:02 Home Medications: Ambulatory Orders Acetaminophen [Tylenol .Regular Strength -] 650 mg PO Q3H PRN #0 tablet Ibuprofen [Motrin -] 600 mg PO Q4H PRN #0 tablet 05/28/15 Vitamins (Sjr) - 1 tab PO DAILY #30 tablet 05/28/15 Albuterol Sulfate Inhaler - [Ventolin HFA Inhaler -] 1 - 2 inh PO Q4H #1 inhaler 05/21/18 Amoxicillin - [Amoxicillin 500mg Capsule -] 500 mg PO BID #14 capsule 05/21/18 Ibuprofen 800 mg PO TID #30 tablet 05/21/18 Ketotifen Fumarate [Zaditor] 2 drop OU TID #100 drops 05/21/18 Amoxicillin - [Amoxicillin 875mg Tablet -] 875 mg PO BID #20 tablet 08/28/18 Sulfamethoxazole/Trimethoprim [Bactrim Ds -] 1 tab PO BID #14 tablet 04/22/19 Nitrofurantoin Monohyd/M-Cryst [Macrobid -] 100 mg PO BID #14 capsule 01/06/20 Asthma: No Cancer: No Cardiac Disorders: No COPD: No Diabetes: No HTN: No Seizures: No Thyroid Disease: No - Surgical History Cholecystectomy: Yes - Reproductive History (#): 4 Para: 3 Cervical CA: No Dysfunctional Uterine Bleeding: No Ectopic : No Endometrial CA: No Polycystic Ovaries: No Therapeutic (s) & number: ("baby in utero at 15 weeks") Tubal Ligation: No - Immunization History Immunization Up to Date: Yes - Psycho Social/Smoking Cessation Hx Smoking History: Never smoked Have you smoked in the past 12 months: Yes Number of Cigarettes Smoked Daily: 0 If you are a former smoker, when did you quit?: 3 Weeks Hx Alcohol Use: No Drug/Substance Use Hx: No Substance Use Type: None Hx Substance Use Treatment: No Review of Systems - Review of Systems Comments:: 01/06/20 07:16 GENERAL/CONSTITUTIONAL: No fever or chills. No weakness. HEAD, EYES, EARS, NOSE AND THROAT: No change in vision. No ear pain or discharge. No sore throat. CARDIOVASCULAR: No chest pain or shortness of breath RESPIRATORY: No cough, wheezing, or hemoptysis. GASTROINTESTINAL: +N/V as described. No diarrhea or constipation. GENITOURINARY: +Bleeding as described. No dysuria, frequency, or change in urination. MUSCULOSKELETAL:+Lower back pain as described. No joint or muscle swelling or pain. SKIN: No rash NEUROLOGIC: No headache, vertigo, loss of consciousness, or change in strength/ sensation. ENDOCRINE: No increased thirst. No abnormal weight change HEMATOLOGIC/LYMPHATIC: No anemia, easy bleeding, or history of blood clots. ALLERGIC/IMMUNOLOGIC: No hives or skin allergy. *Physical Exam - Vital Signs Last Vital Signs Temp Pulse Resp BP Pulse Ox 98.2 F 88 16 113/66 97 01/06/20 06:45 01/06/20 06:45 01/06/20 06:45 01/06/20 06:45 01/06/20 06:45 - Physical Exam 01/06/20 07:16 GENERAL: Awake, alert, and fully oriented, in no acute distress HEAD: No signs of trauma, normocephalic, atraumatic EYES: PERRLA, EOMI, sclera anicteric, conjunctiva clear ENT: Auricles normal inspection, hearing grossly normal, nares patent, oropharynx clear without exudates. Moist mucosa NECK: Normal ROM, supple, no lymphadenopathy, JVD, or masses LUNGS: No distress, speaks full sentences, clear to auscultation bilaterally HEART: Regular rate and rhythm, normal S1 and S2, no murmurs, rubs or gallops, peripheral pulses normal and equal bilaterally. ABDOMEN: Soft, nontender, normoactive bowel sounds. No guarding, no rebound. No masses EXTREMITIES: Normal inspection, Normal range of motion, no edema. No clubbing or cyanosis. NEUROLOGICAL: Cranial nerves II through XII grossly intact. Normal speech, normal gait, no focal sensorimotor deficits SKIN: Warm, Dry, normal turgor, no rashes or lesions noted. VAGINAL: Os closed, no CMT, no adnexal tenderness, no blood noted in vaginal vault. ED Treatment Course - LABORATORY CBC & Chemistry Diagram: 01/06/20 07:45 01/06/20 07:45 Medical Decision Making - Medical Decision Making 01/06/20 07:46 Ms. Willams is a 29 yo female w/ pmh as described who presents for evaluation of vaginal bleeding w/ unconfirmed IUP. Will evaluate w/ TVUS as well as labs to assess Rh and check for hydration status / possible UTI. 01/06/20 09:32 Patient noted to have UTI as below. Will start Macrobid for treatment. Sonogram significant for size c/w 11w5d, HR 171. Read pending. 01/06/20 10:30 US read significant for small implantation bleed along R lateral margin of sac. Patient advised to f/u outpatient w/ PICKLE WATER PUMP OPERATOR. ABX sent to patient's pharmacy. Discharging to home. Discharge - Discharge Information Problems reviewed: Yes Clinical Impression/Diagnosis: Vaginal bleeding UTI (urinary tract infection) during Qualifiers: Trimester: first trimester Qualified Code(s): O23.41 - Unspecified infection of urinary tract in , first trimester Disposition: HOME - Follow up/Referral - Patient Discharge Instructions Patient Printed Discharge Instructions: DI for Vaginal Bleeding During , DI for Urinary Tract Infection (UTI) Additional Instructions: You were evaluated today in the ER for your symptoms. We identified a small implantation bleed on ultrasound that will need follow-up and found that you currently have a UTI. We have sent antibiotics to your pharmacy. Please follow- up with PICKLE WATER PUMP OPERATOR later this week as discussed for further evaluation. Return to ER if any fever, chills, pain, or other concerning symptoms. - Post Discharge Activity Work/Back to School Note: Back to Work
[2020-01-06] MEDS ORDERED: SODIUM CHLORIDE 1,000 ML IV STA (07:42)
[2020-01-06] MEDS ORDERED: ACETAMINOPHEN 1000 MG/100 ML VIAL (NON FORMULARY) IVPB ONE (07:43)
[2020-01-06] MEDS ORDERED: ACETAMINOPHEN INJECTION 100 ML IVPB ONE (07:50)
[2020-01-06 08:13] LABS: BASO % 0.4 % (0-2.0); EOS % 1.8 % (0-4.5); HEMATOCRIT 36.4 % (32.4-45.2); HEMOGLOBIN 12.6 GM/dL (10.7-15.3); LYMPH % 24.6 % (8-40); MCH 31.4 pg (25.7-33.7); MCHC 34.5 g/dl (32.0-36.0); MEAN PLT VOLUME 6.7 fl (7.5-11.1); MONO % 5.7 % (3.8-10.2); NEUT % 67.5 % (42.8-82.8); PLATELET COUNT 380 K/MM3 (134-434); RDW 12.8 % (11.6-15.6)
--- NOTE | 2020-01-06 08:31 | PDOC ---
Attending Attestation - Resident Resident Name: NorbertowangRemingtonRudy - ED Attending Attestation I have performed the following: I have examined & evaluated the patient, The case was reviewed & discussed with the resident, I agree w/resident's findings & plan, Exceptions are as noted - HPI HPI: 01/06/20 08:30 29 yo A1 female at 11 weeks gestation, LMP 10/21/19, [employer] at [address] [place] [address] presents with abdominal cramping and vaginal spotting symptoms mild to moderate persistent constant no exacerbating leaving factors - Physicial Exam PE: 01/06/20 08:30 Vitals: Triage Vital signs reviewed General Appearance: No acute distress, well nourished well developed, Head: Atraumatic, Abdomen: Soft, non distended, normal bowel sounds, non tender to palpation Psych: Normal mood, normal affect - Medical Decision Making 01/06/20 11:33 Positive IUP on ultrasound patient feels well no abdominal pain we will treat UTI with Macrobid O+ Patient has [employer] follow-up Findings, the need for follow-up and strict return instructions discussed with patient.
[2020-01-06 08:33] LABS: EPI CELLS 6.1 /HPF (0-5/HPF); HYALINE CASTS 9 /lpf (0-8); URINE APPEARANCE CLOUDY; URINE BACTERIA 464.9 /hpf (NEGATIVE); URINE BILIRUBIN NEGATIVE (NEGATIVE); URINE COLOR YELLOW; URINE GLUCOSE (UA) NEGATIVE (NEGATIVE); URINE KETONE NEGATIVE (NEGATIVE); URINE LEUK ESTERASE 1+ (NEGATIVE); URINE NITRITE NEGATIVE (NEGATIVE); URINE PROTEIN NEGATIVE (NEGATIVE); URINE RBC 1 /hpf (0-4); URINE UROBILINOGEN 0.2 mg/dL (0.2-1.0); URINE WBC 21 /hpf (0-5)
[2020-01-06 08:56] LABS: ALBUMIN 3.5 g/dl (3.4-5.0); BILIRUBIN,TOTAL 0.2 mg/dL (0.2-1); BLOOD UREA NITROGEN 5.9 mg/dL (7-18); CALCIUM 9.4 mg/dL (8.5-10.1); CREATININE 0.7 mg/dL (0.55-1.3); POTASSIUM 3.9 mmol/L (3.5-5.1); TOT PROT 7.6 g/dl (6.4-8.2)
[2020-01-06 10:59] VITALS: BP 117/75; PULSE 84; TEMP 98.1
== END 2020-01-06 11:03 | disposition home or self-care (01) ==
LOC: JER 06:03
PROC: 3E033NZ Introduction of Analgesics, Hypnotics, Sedatives into Peripheral Vein, Percutaneous Approach (ICD-10-PCS; principal; 2020-01-06)
DX: O26.891 Other specified pregnancy related conditions, first trimester (principal); O20.8 Other hemorrhage in early pregnancy; O23.41 Unspecified infection of urinary tract in pregnancy, first trimester; Z3A.11 11 weeks gestation of pregnancy
CPT/HCPCS: 36415; 76801-TC; 80053; 81003; 84702; 85025; 86850; 86900; 86901; 87077; 87086; 96372; 99285-25; J0131; J7030

== ENCOUNTER 2020-07-24 02:15 | Inpatient (IN) | payer OTHER ==
[2020-07-24] MEDS ORDERED: ELECTROLYTE-148 SOLN 500 ML IV ONE (03:00)
[2020-07-24] MEDS ORDERED: PROMETHAZINE HCL 25 MG/1 ML VIAL IVPUSH ONE (08:12)
[2020-07-24] MEDS ORDERED: DEXTROSE 5%-LACTATED RINGERS 1,000 ML IV SCH (08:15)
--- NOTE | 2020-07-24 08:20 | HP ---
Past Medical History - Primary Care Physician PCP:: Mikhail Richey - Admission Chief Complaint: 40 weeks, labor History of Present Illness: 30 yo f o 3 3 40 weeks,c/o contraction, no rom , no bleeding , no fever , cx 3 cm 70 vx -3 mi, fhr cat 1, irregular contraction care at [facility], no complication History Source: Patient Limitations to Obtaining History: No Limitations - Past Medical History Pulmonary: Yes: Asthma (no recent attack) ...: 7 ...Para: 3 ...Term: 3 ...Spon : 1 ...Induced : 2 ...LMP: 10/18/19 ... Weeks Gestation by Dates: 40 ...EDC by Dates: 07/24/20 Infectious Disease: Yes: STD's (h/o chlamydia) - Past Surgical History Past Surgical History: Yes: Cholecystectomy Hx Myomectomy: No Hx Transabdominal Cerclage: No - Smoking History Smoking history: Never smoked Have you smoked in the past 12 months: Yes Aproximately how many cigarettes per day: 0 If you are a former smoker, when did you quit?: 3 Weeks - Alcohol/Substance Use Hx Alcohol Use: No History of Substance Use: reports: None - Social History History of Recent Travel: No Home Medications - Allergies Allergies/Adverse Reactions: Allergies Allergy/AdvReac Type Severity Reaction Status Date / Time No Known Allergies Allergy Verified 06/21/20 04:59 - Home Medications Home Medications: Ambulatory Orders Albuterol Sulfate Inhaler - [Ventolin HFA Inhaler -] 1 - 2 inhaler IN PRN PRN 06/14/20 Vitamins (Sjr) - 1 tab PO DAILY 06/14/20 Review of Systems - Review of Systems Constitutional: reports: No Symptoms Eyes: reports: No Symptoms HENT: reports: No Symptoms Neck: reports: No Symptoms Cardiovascular: reports: No Symptoms Respiratory: reports: No Symptoms Gastrointestinal: reports: No Symptoms Genitourinary: reports: No Symptoms Breasts: reports: No Symptoms Reported Musculoskeletal: reports: No Symptoms Integumentary: reports: No Symptoms Neurological: reports: No Symptoms Endocrine: reports: No Symptoms Hematology/Lymphatic: reports: No Symptoms Psychiatric: reports: No Symptoms Physical Exam - Maternity Vital Signs: Vital Signs Temperature 98.6 F 07/24/20 03:56 Pulse Rate 93 H 09/11/20 03:56 Respiratory Rate 07/24/20 03:56 Blood Pressure 132/72 07/24/20 03:56 O2 Sat by Pulse Oximetry (%) Constitutional: Yes: Well Nourished, No Distress, Calm Eyes: Yes: WNL, Conjunctiva Clear, EOM Intact HENT: Yes: WNL, Atraumatic, Normocephalic Neck: Yes: WNL, Supple, Trachea Midline Cardiovascular: Yes: WNL, Regular Rate and Rhythm Breast(s): Yes: WNL - Abdominal Exam/OB Fundal Height: 40 Number of Fetuses: Single Contractions: Yes Regularity: Irregular Intensity: Mild/Mod Monitor Mode: External Heart Rate Location: [facility] Category: I Accelerations: Non-Uniform Decelerations: None - Vaginal Exam/OB Vaginal Bleeding: No Speculum Exam: No Dilatation (cm): 3 Amniotic Membrane Status: Intact Presentation: Vertex/Position Station: -3 - Physical Exam Musculoskeletal: Yes: WNL Extremities: Yes: WNL Edema: Yes Edema: LLE: Trace, RLE: Trace Deep Tendon Reflex Grade: Normal +2 Psychiatric: Yes: WNL Hemorrhage Risk Assessment - Risk Factors Medium Risk Factors: Yes: Multiple gestation Risk Score: 1 Risk Level: Medium Risk Problem List - Problems (1) 40 weeks gestation of Code(s): Z3A.40 - 40 WEEKS GESTATION OF (2) First stage of labor established Code(s): GQX8542 - Assessment/Plan admit fhm pain management irregular contraction , pitocin discussed , risks associated with pitocin discussed, agreed to have pitocin
[2020-07-24 09:41] LABS: BASO % 0.1 % (0-2.0); EOS % 1.2 % (0-4.5); HEMATOCRIT 32.8 % (32.4-45.2); HEMOGLOBIN 11.2 GM/dL (10.7-15.3); LYMPH % 28.8 % (8-40); MCH 31.1 pg (25.7-33.7); MCHC 34.2 g/dl (32.0-36.0); MEAN PLT VOLUME 7.8 fl (7.5-11.1); MONO % 8.1 % (3.8-10.2); NEUT % 61.8 % (42.8-82.8); PLATELET COUNT 237 K/MM3 (134-434); WHITE BLOOD COUNT 8.2 K/mm3 (4.0-10.0)
[2020-07-24 09:48] LABS: INR 0.97 (0.83-1.09); PROTHROMBIN TIME (PATIENT) 11.4 SEC (9.7-13.0)
[2020-07-24 09:50] LABS: ACTIVATED PTT 28.3 SECONDS (25.2-36.5)
[2020-07-24] MEDS ORDERED: OXYTOCIN 30 UNITS in 0.9% NS 30 UNIT/500 ML INFUS.BAG IVPB ONE (10:03)
[2020-07-24 10:05] LABS: BLOOD UREA NITROGEN 6.9 mg/dL (7-18); CALCIUM 8.6 mg/dL (8.5-10.1); CREATININE 0.5 mg/dL (0.55-1.3); POTASSIUM 3.8 mmol/L (3.5-5.1)
[2020-07-24] MEDS ORDERED: BUTORPHANOL TARTRATE 1 MG/ML VIAL IVPUSH ONE (10:45)
[2020-07-24 11:30] VITALS: BMI 32.7
[2020-07-24] MEDS ORDERED: OXYTOCIN 30 UNITS in 0.9% NS 30 UNIT/500 ML INFUS.BAG IVPB SCH (11:45)
--- NOTE | 2020-07-24 15:00 | PN ---
Progress Note (short form) - Note Progress Note: cx 4 cm, 80 vx -2 arom, clear , fhr cat 1, irregular contraction ,on pitocin Problem List - Problems (1) 40 weeks gestation of Code(s): Z3A.40 - 40 WEEKS GESTATION OF (2) First stage of labor established Code(s): VSP0375 -
[2020-07-24] MEDS ORDERED: BUTORPHANOL TARTRATE 2 MG/ML VIAL ONE (15:59)
[2020-07-24] MEDS ORDERED: PROMETHAZINE HCL 25 MG/1 ML VIAL ONE ×2 (15:59→18:23)
[2020-07-24] MEDS ORDERED: BUTORPHANOL TARTRATE 1 MG/ML VIAL ONE (18:23)
--- NOTE | 2020-07-24 18:25 | PN ---
Progress Note (short form) - Note Progress Note: cx 9 cm , thick ant lip. patient pushing advised not to push , fhr cat 1, will give 1 mg stadol for relaxation and pain control,put om lt side lt side Problem List - Problems (1) 40 weeks gestation of Code(s): Z3A.40 - 40 WEEKS GESTATION OF (2) First stage of labor established Code(s): [id number] -
--- NOTE | 2020-07-24 19:10 | HP ---
Past Medical History - Primary Care Physician PCP:: Mikhail Richey - Admission Chief Complaint: 40 weeks , labor History of Present Illness: 30 yo f 40 weeks, c/o contraction since mid night , no ROM, no bleeding , cx 3 cm 70 vx -3 mi, fhr cat 11, irregular contraction, states she will not leave untill has her baby, wants pitocin , risks associated with pitocin discussed, History Source: Patient Limitations to Obtaining History: No Limitations - Past Medical History Pulmonary: Yes: Asthma (no recent attack) ...: 7 ...Para: 3 ...Term: 3 ...: 0 ...Spon : 1 ...Induced : 2 ...Living Children: 3 ...Multiple Gestation: 0 ...LMP: 10/18/19 ... Weeks Gestation by Dates: 40.0 ...EDC by Dates: 07/24/20 Infectious Disease: Yes: STD's (h/o chlamydia) - Past Surgical History Past Surgical History: Yes: Cholecystectomy Hx Myomectomy: No Hx Transabdominal Cerclage: No - Smoking History Smoking history: Former smoker Have you smoked in the past 12 months: Yes Aproximately how many cigarettes per day: 6 If you are a former smoker, when did you quit?: April - Alcohol/Substance Use Hx Alcohol Use: No History of Substance Use: reports: None - Social History Usual Living Arrangement: Yes: With Spouse History of Recent Travel: No Home Medications - Allergies Allergies/Adverse Reactions: Allergies Allergy/AdvReac Type Severity Reaction Status Date / Time No Known Allergies Allergy Verified 06/21/20 04:59 - Home Medications Home Medications: Ambulatory Orders Albuterol Sulfate Inhaler - [Ventolin HFA Inhaler -] 1 - 2 inhaler IN PRN PRN 06/14/20 Vitamins (Sjr) - 1 tab PO DAILY 06/14/20 Review of Systems - Review of Systems Constitutional: reports: No Symptoms Eyes: reports: No Symptoms HENT: reports: No Symptoms Neck: reports: No Symptoms Cardiovascular: reports: No Symptoms Respiratory: reports: No Symptoms Gastrointestinal: reports: No Symptoms Genitourinary: reports: No Symptoms Breasts: reports: No Symptoms Reported Musculoskeletal: reports: Back Pain, Muscle Cramps Integumentary: reports: No Symptoms Neurological: reports: No Symptoms Endocrine: reports: No Symptoms Hematology/Lymphatic: reports: No Symptoms Psychiatric: reports: No Symptoms Physical Exam - Maternity Vital Signs: Vital Signs Temperature 98.1 F 07/24/20 09:45 Pulse Rate 81 07/24/20 09:45 Respiratory Rate 17 07/24/20 09:45 Blood Pressure 136/87 07/24/20 09:45 O2 Sat by Pulse Oximetry (%) Constitutional: Yes: Obese Eyes: Yes: WNL HENT: Yes: WNL Neck: Yes: WNL Cardiovascular: Yes: WNL, Regular Rate and Rhythm Lungs: Clear to auscultation Breast(s): Yes: WNL - Abdominal Exam/OB Fundal Height: 40 Number of Fetuses: Single Presentation: Vertex Contractions: Yes Regularity: Irregular Intensity: Moderate Monitor Mode: External Heart Rate Location: [facility] Category: I Accelerations: Non-Uniform Decelerations: None - Vaginal Exam/OB Vaginal Bleeding: No Speculum Exam: No Dilatation (cm): 3 cm Effacement (%): 70 Amniotic Membrane Status: Intact Presentation: Vertex/Position Station: -3 - Physical Exam Musculoskeletal: Yes: WNL Extremities: Yes: WNL Edema: Yes Edema: LLE: Trace, RLE: Trace Deep Tendon Reflex Grade: Normal +2 ...Motor Strength: WNL Psychiatric: Yes: WNL - Labs Lab Results: CBC, BMP 07/24/20 09:10 07/24/20 09:10 Hemorrhage Risk Assessment - Risk Factors Medium Risk Factors: Yes: Multiple gestation Risk Score: 1 Risk Level: Medium Risk Problem List - Problems (1) 40 weeks gestation of Code(s): Z3A.40 - 40 WEEKS GESTATION OF (2) First stage of labor established Code(s): [id number] - Assessment/Plan admit FHM pitocin discussed rissks explained , risks of injury, hyper stimulation, need for c/s , shoulder dystocia discussed pain management
[2020-07-24] MEDS ORDERED: OXYTOCIN 20 UNITS in 0.9% NS 20 UNIT/1,000 ML INFUS.BAG IV ONE ×2 (19:19→21:03)
[2020-07-24] MEDS ORDERED: LIDOCAINE HCL 1% PRESERVATIVE FREE - 30ML VIAL ONE (19:19)
[2020-07-24] MEDS: OXYTOCIN 20 UNITS in 0.9% NS 20 UNIT/1,000 ML INFUS.BAG IV SCH (20:00)
[2020-07-24] MEDS ORDERED: BENZOCAINE 20% 57 GM BOTTLE TP PRN (20:20)
[2020-07-24] MEDS ORDERED: METHYLERGONOVINE MALEATE 0.2 MG/1 ML AMP IM PRN (20:20)
[2020-07-24] MEDS ORDERED: BISACODYL 10 MG SUPP.RECT RC PRN (20:20)
[2020-07-24] MEDS ORDERED: BENZOCAINE 28 GM HEMORRHOIDAL OINTMENT TP PRN (20:20)
[2020-07-24] MEDS ORDERED: WITCH HAZEL 50% (TUCKS) 40 PAD/JAR PAD TP PRN (20:20)
[2020-07-24] MEDS ORDERED: METHYLERGONOVINE MALEATE 0.2 MG/1 ML AMP IM ONE (20:21)
--- NOTE | 2020-07-24 20:22 | PN ---
Delivery - Delivery Vaginal Delivery: Spontaneous Type of Anesthesia: Local Episiotomy/Laceration: Midline EBL (cc): 300 Delivery, Single - Feeding Plan Initial Plan: Elected not to breastfeed exclusively throughout hospitalization
[2020-07-24] MEDS ORDERED: D5W-LR W/ 20 UNITS OXYTOCIN 1,000 ML IV SCH (20:30)
[2020-07-25] MEDS ORDERED: OXYTOCIN 20 UNITS in 0.9% NS 20 UNIT/1,000 ML INFUS.BAG IV ONE (01:03)
[2020-07-25] MEDS ORDERED: ACETAMINOPHEN 325 MG TABLET (FP) ONE ×3 (02:01→09:23)
[2020-07-25] MEDS ORDERED: IBUPROFEN 600 MG TABLET (FP) PO ONE ×2 (02:02→09:23)
[2020-07-25] MEDS: IBUPROFEN 600 MG TABLET (FP) PO PRN ×3 (02:15→17:58)
[2020-07-25] MEDS: ACETAMINOPHEN 325 MG TABLET (FP) PO PRN ×3 (02:15→17:57)
[2020-07-25] MEDS: OXYTOCIN 20 UNITS in 0.9% NS 20 UNIT/1,000 ML INFUS.BAG IV SCH (02:15)
[2020-07-25] MEDS: FERROUS SO4 325 MG TABLET (FP) PO SCH ×2 (07:59→17:22)
[2020-07-25] MEDS: PRENATAL VITAMINS W/ FOLIC ACID TABLET (FP) PO SCH (09:04)
[2020-07-25 09:54] LABS: BASO % 0.1 % (0-2.0); EOS % 0.3 % (0-4.5); HEMATOCRIT 31.2 % (32.4-45.2); HEMOGLOBIN 10.5 GM/dL (10.7-15.3); LYMPH % 12.7 % (8-40); MCH 30.4 pg (25.7-33.7); MCHC 33.8 g/dl (32.0-36.0); MEAN CELL VOLUME 89.9 fl (80-96); MEAN PLT VOLUME 8.1 fl (7.5-11.1); MONO % 8.6 % (3.8-10.2); NEUT % 78.3 % (42.8-82.8); PLATELET COUNT 247 K/MM3 (134-434); RBC 3.46 M/mm3 (3.60-5.2); WHITE BLOOD COUNT 13.5 K/mm3 (4.0-10.0)
--- NOTE | 2020-07-25 11:41 | PN ---
Progress Note (short form) - Note Progress Note: ppd 1,s/p , positive RPR 1:1 FTA pending no pain, no excess vaginal bleeding CBC, BMP 07/25/20 09:13 07/24/20 09:10 Last Vital Signs Temp Pulse Resp BP Pulse Ox 98.6 F 89 18 115/62 100 07/25/20 10:00 07/25/20 10:00 07/25/20 10:00 07/25/20 10:00 07/24/20 21:15 abdomen soft, uterus firm, non tender lochia mild , no calf tenderness plan ambulate I/D consult for possible tx Problem List - Problems (1) 40 weeks gestation of Code(s): Z3A.40 - 40 WEEKS GESTATION OF (2) First stage of labor established Code(s): [id number] -
[2020-07-25] MEDS ORDERED: SENNOSIDES/DOCUSATE COMBO (SENNA PLUS) TABLET (UD) PO PRN (22:00)
[2020-07-26] MEDS: IBUPROFEN 600 MG TABLET (FP) PO PRN ×2 (03:21→10:23)
[2020-07-26] MEDS: ACETAMINOPHEN 325 MG TABLET (FP) PO PRN ×2 (03:21→10:22)
--- NOTE | 2020-07-26 09:12 | DS ---
Physical Exam-DOCTOR OF NURSE ANESTHESIA Vital Signs: Vital Signs Temperature 98.2 F 07/25/20 22:00 Pulse Rate 76 07/25/20 22:00 Respiratory Rate 18 07/25/20 22:00 Blood Pressure 114/65 07/25/20 22:00 O2 Sat by Pulse Oximetry (%) 98 07/25/20 17:28 Constitutional: Yes: Well Nourished, No Distress, Calm Eyes: Yes: WNL, Conjunctiva Clear, EOM Intact HENT: Yes: WNL, Atraumatic, Normocephalic Neck: Yes: WNL, Supple, Trachea Midline Cardiovascular: Yes: WNL, Regular Rate and Rhythm Respiratory: Yes: WNL, Regular, CTA Bilaterally Gastrointestinal: Yes: WNL ...Rectal Exam: Yes: WNL Renal/: Yes: WNL ....Post : Yes: Uterus firm, Uterus non-tender, Slight lochia rubra Breast(s): Yes: WNL Musculoskeletal: Yes: WNL Extremities: Yes: WNL Edema: No Integumentary: Yes: WNL Neurological: Yes: WNL, Alert, Oriented ...Motor Strength: WNL Psychiatric: Yes: WNL, Alert, Oriented Labs: CBC, BMP 07/25/20 09:13 07/24/20 09:10 Delivery - Delivery Vaginal Delivery: Spontaneous Type of Anesthesia: Local Episiotomy/Laceration: Midline EBL (cc): 300 Delivery, Single - Stages of Labor Date 1st Stage Initiatied: 07/24/20 Time 1st Stage Initiated: 14:50 Date 2nd Stage Initiated: 07/24/20 Time 2nd Stage Initiated: 16:00 Date of Delivery: 07/24/20 Time of Delivery: 19:56 Time Placenta Delivered: 19:59 Placenta: Yes: Spontaneous - Condition of Laboratory Technician/Relations Liaison Present: Yes Name: Deborah Castro Position: OA Total Hours ROM (Hrs/Mins): 5 HOURS/ 9 MINUTES - 1 Minute Total Score: 9 5 Minutes Total Score: 9 - Feeding Plan Initial Plan: Elected not to breastfeed exclusively throughout hospitalization Discharge Summary Problems reviewed: Yes Reason For Visit: LABOR ADMIT Current Active Problems 40 weeks gestation of (Acute) First stage of labor established (Acute) Procedures: Principal: Hospital Course: positive RPR 1:1 , fta pending Health Concerns: positive RPR Plan of Treatment: follow up [facility] care 4 weeks, follow up with I/D Condition: Good - Instructions Diet, Activity, Other Instructions: regular diet, no intercourse , if fever ,pain . heavy vaginal bleeding call follow up with I/D 1 week Referrals: Mikhail Richey MD [Staff Physician] - - Home Medications Comprehensive Discharge Medication List: Ambulatory Orders Albuterol Sulfate Inhaler - [Ventolin HFA Inhaler -] 1 - 2 inhaler IN PRN PRN 06/14/20 Vitamins (Sjr) - 1 tab PO DAILY 06/14/20 Ibuprofen [Motrin -] 600 mg PO TID #21 tablet 07/26/20
[2020-07-26] MEDS: FERROUS SO4 325 MG TABLET (FP) PO SCH (10:23)
[2020-07-26] MEDS: PRENATAL VITAMINS W/ FOLIC ACID TABLET (FP) PO SCH (10:23)
[2020-07-26] MEDS ORDERED: PENICILLIN G BENZATHINE 2,400,000 UNIT/4 ML PFS IM ONE (13:15)
[2020-07-26 14:56] VITALS: BP 115/70; PULSE 70; TEMP 98
--- NOTE | 2020-07-26 20:18 | PN ---
Progress Note (short form) - Note Progress Note: ID CONSULT DICTATED
--- NOTE | 2020-07-27 10:43 | CONS ---
INFECTIOUS DISEASE CONSULTATION DATE OF CONSULTATION: DATE OF DICTATION: 07/27/2020 HISTORY: The patient is a 30-year-old female who was admitted to the hospital in July 24, 2020, at term labor. The patient underwent a normal spontaneous vaginal delivery on July 24, 2020. The infectious disease consultation was requested because of positive syphilis serology. On July 24, 2020, she was found to have a reactive syphilis antibody as well as a reactive FTA of 1:1. She had previously had a nonreactive RPR in 2014. The patient denies any history of clinical sexually transmitted diseases. She denies any vaginal sores or lesions. She reports that her significant other was tested, the results of which are pending. She had received care at [facility], reports having a negative HIV test within the past 1 month. PAST MEDICAL HISTORY: As above. PHYSICAL EXAMINATION: General: She is awake and alert, not acutely toxic appearing. Vital Signs: Temperature 98.0, blood pressure 115/70, pulse 70 regular, respiration 20 per minute. Heart: Sounds S1, S2. Lungs: Clear. Abdomen: Distended, positive tenderness. Extremities: Negative for edema. IMPRESSION: Positive syphilis serology. Will contact the Department of Health on Monday to determine a history of positive serologies in the past or treatment. At this time will give 1 dose of benzathine penicillin 2.4 million units IM. Patient was advised to follow up with her significant other's test result. She was referred to the Department of Health for further followup evaluation. Thank you for the kind referral. MARINO MORSE M.D. [id number]
== END 2020-07-26 14:00 | disposition home or self-care (01) | DRG 560 ==
LOC: JDEL 02:15 → JLDR 07:30 → J3W 07-25 14:30
PROVIDERS: ADMIT Obstetrics & Gynecology; ATTEND Obstetrics & Gynecology
PROC: 10E0XZZ Delivery of Products of Conception, External Approach (ICD-10-PCS; principal; 2020-07-24)
PROC: 0W8NXZZ Division of Female Perineum, External Approach (ICD-10-PCS; 2020-07-24)
PROC: 3E033VJ Introduction of Other Hormone into Peripheral Vein, Percutaneous Approach (ICD-10-PCS; 2020-07-24)
PROC: 10907ZC Drainage of Amniotic Fluid, Therapeutic from Products of Conception, Via Natural or Artificial Opening (ICD-10-PCS; 2020-07-24)
DX: O48.0 Post-term pregnancy (principal); Z3A.40 40 weeks gestation of pregnancy; O98.12 Syphilis complicating childbirth; A53.0 Latent syphilis, unspecified as early or late; Z37.0 Single live birth; Z86.19 Personal history of other infectious and parasitic diseases; Z87.09 Personal history of other diseases of the respiratory system; Z90.49 Acquired absence of other specified parts of digestive tract
CPT/HCPCS: 36415; 59409; 80048; 85025; 85610; 85730; 86593; 86780; 86850; 86900; 86901; U0003

== ENCOUNTER 2021-03-11 16:18 | Emergency (ER) | payer OTHER ==
[2021-03-11 16:24] VITALS: BP 113/80; PULSE 96; TEMP 98.1; BMI 29.2
== END 2021-03-11 17:04 | disposition home or self-care (01) ==
LOC: JERFT 16:18
DX: S61.213A Laceration without foreign body of left middle finger without damage to nail, initial encounter (principal)
CPT/HCPCS: 99282-25

== ENCOUNTER 2021-08-26 14:13 | Emergency (ER) | payer OTHER ==
[2021-08-26 14:23] VITALS: BP 106/64; PULSE 70; TEMP 98.2; BMI 29.2
[2021-08-26] MEDS ORDERED: SODIUM CHLORIDE 0.9% 500 ML INFUS.BAG IV ONE (14:48)
[2021-08-26 15:23] LABS: BASO % 0.3 % (0-2.0); EOS % 1.8 % (0-4.5); HEMATOCRIT 30.9 % (32.4-45.2); HEMOGLOBIN 10.8 GM/dL (10.7-15.3); LYMPH % 33.6 % (8-40); MCH 31.5 pg (25.7-33.7); MCHC 34.8 g/dl (32.0-36.0); MEAN CELL VOLUME 90.6 fl (80-96); MEAN PLT VOLUME 6.6 fl (7.5-11.1); MONO % 4.9 % (3.8-10.2); NEUT % 59.4 % (42.8-82.8); PLATELET COUNT 354 10^3/uL (134-434); RBC 3.41 M/mm3 (3.60-5.2); RDW 13.2 % (11.6-15.6); WHITE BLOOD COUNT 7.7 K/mm3 (4.0-10.0)
[2021-08-26 15:41] LABS: ALBUMIN 3.8 g/dl (3.4-5.0); CALCIUM 8.9 mg/dL (8.5-10.1)
[2021-08-26 15:42] LABS: BLOOD UREA NITROGEN 6.7 mg/dL (7-18)
[2021-08-26 15:44] LABS: CREATININE 0.7 mg/dL (0.55-1.3)
[2021-08-26 15:46] LABS: BILIRUBIN,TOTAL 0.4 mg/dL (0.2-1); TOT PROT 7.3 g/dl (6.4-8.2)
[2021-08-26 15:49] LABS: PH,URINE 5.5 (5.0-8.0); URINE APPEARANCE CLEAR; URINE BILIRUBIN NEGATIVE (NEGATIVE); URINE COLOR DK YELLOW; URINE GLUCOSE (UA) NEGATIVE (NEGATIVE); URINE KETONE 1+ (NEGATIVE); URINE LEUK ESTERASE 1+ (NEGATIVE); URINE NITRITE NEGATIVE (NEGATIVE); URINE PROTEIN TRACE (NEGATIVE)
[2021-08-26 18:21] LABS: EPI CELLS 77.6 /uL (0-25.1); HYALINE CASTS 4.82 /uL (0-3.1); URINE BACTERIA 528.4 /uL (0-1359); URINE RBC 2.7 /uL (0-23.9); URINE WBC 27.5 /uL (0-25.8)
== END 2021-08-26 17:08 | disposition home or self-care (01) ==
LOC: JER 14:13
DX: O23.41 Unspecified infection of urinary tract in pregnancy, first trimester (principal)
CPT/HCPCS: 36415; 76817-TC; 80053; 81003; 84702; 85025; 86850; 86900; 86901; 87086; 99284-25

== ENCOUNTER 2021-09-26 16:14 | Emergency (ER) | payer OTHER ==
[2021-09-26 16:20] VITALS: TEMP 97; BMI 29.2
[2021-09-26] MEDS ORDERED: SODIUM CHLORIDE 0.9% 500 ML INFUS.BAG IV ONE ×2 (17:29→20:36)
[2021-09-26 18:31] LABS: BASO % 0.5 % (0-2.0); EOS % 1.8 % (0-4.5); HEMATOCRIT 32.5 % (32.4-45.2); HEMOGLOBIN 11.1 GM/dL (10.7-15.3); MCHC 34.1 g/dl (32.0-36.0); MEAN CELL VOLUME 91.1 fl (80-96); MEAN PLT VOLUME 6.8 fl (7.5-11.1); MONO % 5.1 % (3.8-10.2); NEUT % 65.6 % (42.8-82.8); PLATELET COUNT 505 10^3/uL (134-434); RBC 3.57 M/mm3 (3.60-5.2); RDW 13.3 % (11.6-15.6); WHITE BLOOD COUNT 10.1 K/mm3 (4.0-10.0)
[2021-09-26 18:37] LABS: INR 1.05 (0.83-1.09); PROTHROMBIN TIME (PATIENT) 12.3 SEC (9.7-13.0)
[2021-09-26 18:39] LABS: ACTIVATED PTT 30.4 SECONDS (25.2-36.5)
[2021-09-26 18:51] LABS: ALBUMIN 4.3 g/dl (3.4-5.0); BLOOD UREA NITROGEN 12.4 mg/dL (7-18); CALCIUM 9.1 mg/dL (8.5-10.1)
[2021-09-26 18:54] LABS: CREATININE 0.8 mg/dL (0.55-1.3)
[2021-09-26 18:56] LABS: BILIRUBIN,TOTAL 0.3 mg/dL (0.2-1)
[2021-09-26] MEDS ORDERED: OXYTOCIN 20 UNITS in 0.9% NS 1000 ML INFUS.BAG IV ONE (20:27)
[2021-09-26] MEDS ORDERED: ceFAZolin 2 GRAM PREMIX BAG IVPB ONE (20:28)
[2021-09-26] MEDS ORDERED: MISOPROSTOL 200 MCG TABLET PO ONE (20:28)
[2021-09-26 23:20] VITALS: BP 126/79; PULSE 93
== END 2021-09-26 23:20 | disposition home or self-care (01) ==
LOC: JER 16:14
DX: O03.9 Complete or unspecified spontaneous abortion without complication (principal)
CPT/HCPCS: 36415; 76817-TC; 80053; 84702; 85025; 85610; 85730; 86850; 86900; 86901; 99284-25